=== PATIENT | male | born 1950 | race Caucasian/White ===

== ENCOUNTER 2020-10-11 10:24 | Emergency (ER) | payer MEDICARE, OTHER ==
[~2020-10-11] VITALS: Ht 177.8 cm; Wt 90.7 kg
[2020-10-11] MEDS ORDERED: LEVOTHYROXINE75 MC1 (10:41)
[2020-10-11] MEDS ORDERED: LEVOTHYROXINE75 MCG (10:42)
[2020-10-11] MEDS ORDERED: VALSARTAN320 MG (10:42)
[2020-10-11] MEDS ORDERED: ROSUVASTATIN CA20 MG (10:42)
[2020-10-11] MEDS ORDERED: BYSTOLIC10 MG (10:42)
== END 2020-10-11 12:26 | disposition home or self-care (01) ==
LOC: ED 10:24
DX: K59.00 Constipation, unspecified (principal); Z79.899 Other long term (current) drug therapy
CPT/HCPCS: 99283